=== PATIENT | female | born 1945 | race Caucasian/White ===

== ENCOUNTER 2018-11-24 10:55 | Emergency (ER) | payer MEDICARE ==
--- NOTE | 2018-11-24 12:13 | ER Document Report ---
ED Extremity Problem, Lower - General Chief Complaint: Leg Pain Stated Complaint: LEG SWELLING Time Seen by Provider: 11/24/18 12:02 Primary Care Provider: DION JIMENEZ MD [Primary Care Provider] - Follow up as needed Notes: This is a 73-year-old pleasant female to the emergency department for evaluation of pain and swelling to her right lower extremity. Patient states that the dog hit her. Caused a big hematoma on the right distal tib-fib area. Tender to the touch. May be some swelling in the calf but denies any pain there. Went to the urgent care and they were concerned so sent her here. Jake jim is not on any blood thinners. No prior history of DVT. Was diagnosed with influenza last week still has mild cough. Otherwise, patient is feeling well. Denies any other issues. TRAVEL OUTSIDE OF THE [place] IN LAST 30 DAYS: No - HPI Patient complains to provider of: Pain, Swelling Location: Leg Occurred: Yesterday Where: Home Onset/Duration: Sudden Quality of pain: Achy - Related Data Allergies/Adverse Reactions: acetaminophen [From Vicodin] Allergy (Verified 11/24/18 10:59) hydrocodone [From Vicodin] Allergy (Verified 11/24/18 10:59) Past Medical History - General Information source: Patient - Social History Smoking Status: Never Smoker Frequency of alcohol use: None Drug Abuse: None Lives with: Alone Family History: Reviewed & Not Pertinent Patient has suicidal ideation: No Patient has homicidal ideation: No Renal/ Medical History: Denies: Hx Peritoneal Dialysis Review of Systems - Review of Systems Constitutional: denies: Fever, Malaise, Weakness EENT: denies: Nose congestion, Difficulty swallowing, Throat swelling Cardiovascular: denies: Chest pain, Palpitations, Heart racing Respiratory: Cough. denies: Hurts to breathe, Short of breath, Wheezing Gastrointestinal: denies: Abdominal pain, Diarrhea, Nausea, Vomiting Skin: Other - Does have some bruising noted on the right leg she says.. denies: Change in hair/nails, Dryness, Lesions Hematologic/Lymphatic: denies: Anemia, Blood clots, Easy bleeding, Easy bruising Neurological/Psychological: denies: Confusion, Weakness, Numbness Physical Exam - Vital signs Vitals: Temp Pulse Resp BP Pulse Ox 98.1 F 77 18 152/83 H 99 11/24/18 11:05 11/24/18 11:05 11/24/18 11:05 11/24/18 11:05 11/24/18 11:05 Interpretation: Normal - General General appearance: Appears well, Alert - HEENT Head: Normocephalic, Atraumatic Eyes: Normal Pupils: PERRL - Respiratory Respiratory status: No respiratory distress Chest status: Nontender Breath sounds: Normal Chest palpation: Normal - Cardiovascular Rhythm: Regular Heart sounds: Normal auscultation Murmur: No - Abdominal Inspection: Normal Distension: No distension Bowel sounds: Normal Tenderness: Nontender Organomegaly: No organomegaly - Back Back: Normal, Nontender - Extremities General upper extremity: Normal inspection, Nontender, Normal color, Normal ROM, Normal temperature General lower extremity: Tender, Normal color, Normal ROM, Normal temperature, Normal weight bearing, Other - The left lower extremity is normal. The right lower extremity demonstrates what appears to be either a superficial thrombophlebitis versus a hematoma. It is tender to the touch. There is no major tenderness to palpation of the calf but the right lower extremity is slightly larger than the left lower extremity. Pulses are intact. Dorsalis pedis and posterior tibialis palpable.. No: Fred's sign - Neurological Neuro grossly intact: Yes Cognition: Normal Orientation: AAOx4 [place] Coma Scale Eye Opening: Spontaneous [place] Coma Scale Verbal: Oriented [place] Coma Scale Motor: Obeys Commands [place] Coma Scale Total: 15 Speech: Normal Motor strength normal: LUE, RUE, LLE, RLE Sensory: Normal - Psychological Associated symptoms: Normal affect, Normal mood - Skin Skin Temperature: Warm Skin Moisture: Dry Skin Color: Normal, Other - Small amount of bruising noted on the right anterior distal bray Course - Re-evaluation Re-evalutation: 11/24/18 13:43 X-ray of the tib-fib: Negative for acute fracture: Venous ultrasound: Positive for hematoma but no obvious DVT. At this time I think patient would like he just has a traumatic hematoma. Will give an Atul wrap. Will encourage close outpatient follow-up. Discharge at this time in stable condition. - Vital Signs Vital signs: Temp Pulse Resp BP Pulse Ox 98.1 F 77 18 152/83 H 99 11/24/18 11:05 11/24/18 11:05 11/24/18 11:05 11/24/18 11:05 11/24/18 11:05 Discharge - Discharge Clinical Impression: Hematoma of right lower extremity Qualifiers: Encounter type: initial encounter Qualified Code(s): S80.11XA - Contusion of right lower leg, initial encounter Condition: Good Disposition: HOME, SELF-CARE Instructions: Hematoma ([facility]) Additional Instructions: The ultrasound was negative for blood clot. There is no obvious fracture. In the event that symptoms persist or get worse please get reevaluated by primary care doctor or return for worsening symptoms or concerns. Compression dressing such as an Atul wrap may be beneficial. If it makes it feel better than use it. Referrals: DION JIMENEZ MD [Primary Care Provider] - Follow up as needed
--- NOTE | 2018-11-24 13:56 | RADIOLOGY REPORT (SQ) ---
EXAM DESCRIPTION: TIBIA FIBULA RIGHT COMPLETED DATE/TIME: 11/24/2018 1:06 pm REASON FOR STUDY: fall, swelling COMPARISON: None. NUMBER OF VIEWS: Two views. TECHNIQUE: Two radiographic images acquired of the right tibia and fibula to include the knee and an kle in at least one projection. LIMITATIONS: None. FINDINGS: MINERALIZATION: Normal. BONES: No acute fracture or dislocation. No worrisome bone lesions. SOFT TISSUES: No obvious swelling or foreign body. OTHER: No other significant finding. IMPRESSION: NEGATIVE STUDY OF THE RIGHT TIBIA AND FIBULA. NO RADIOGRAPHIC EVIDENCE OF ACUTE INJURY. TECHNICAL DOCUMENTATION: JOB ID: [id number] [employer]- All Rights Reserved Reading location - IP/workstation name: [email or web address]
[2018-11-24 13:57] VITALS: BP 169/65
--- NOTE | 2018-11-24 14:28 | RADIOLOGY REPORT (SQ) ---
EXAM DESCRIPTION: VENOUS UNILATERAL LOWER COMPLETED DATE/TIME: 11/24/2018 1:47 pm REASON FOR STUDY: RLE SWELLING COMPARISON: None. TECHNIQUE: Dynamic and static edwards scale and color images acquired of the right leg venous system. S elected spectral images acquired with additional compression and augmentation maneuvers. The contrala teral common femoral vein and saphenofemoral junction were also imaged. Images stored on PACS. LIMITATIONS: None. FINDINGS: COMMON FEMORAL: Normal phasicity, compression and augmentation. No visualized echogenic ma terial on edwards scale. No defects on color images. FEMORAL: Normal compression and augmentation. No visualized echogenic material on edwards scale. No defe cts on color images. POPLITEAL: Normal compression, augmentation. No visualized echogenic material on edwards scale. No defec ts on color images. CALF VESSELS: Normal compression, augmentation. No visualized echogenic material on edwards scale. No de fects on color images. GSV and SSV: Normal compression, augmentation. No visualized echogenic material on edwards scale. No def ects on color images. ANY DEEP VENOUS INSUFFICIENCY: Not evaluated. ANY EVIDENCE OF POPLITEAL CYST: No. OTHER: No other significant finding. CONTRALATERAL COMMON FEMORAL VEIN AND SAPHENOFEMORAL JUNCTION: Normal phasicity, compression and augmentation. No visualized echogenic material on edwards scale. No de fects on color images. IMPRESSION: NO EVIDENCE OF DVT OR SVT IN THE RIGHT LEG. TECHNICAL DOCUMENTATION: JOB ID: [id number] [employer]- All Rights Reserved Reading location - IP/workstation name: [email or web address]
== END 2018-11-24 13:58 | disposition home or self-care (01) ==
LOC: ER 10:55
DX: S80.11XA Contusion of right lower leg, initial encounter (principal); W54.1XXA Struck by dog, initial encounter; Y92.009 Unspecified place in unspecified non-institutional (private) residence as the place of occurrence of the external cause; R05 Cough; Z88.6 Allergy status to analgesic agent; Z88.5 Allergy status to narcotic agent
CPT/HCPCS: 93971; 99284

== ENCOUNTER 2019-10-01 19:26 | Emergency (ER) | payer MEDICARE, MEDICAID ==
[2019-10-01] MEDS ORDERED: MORPHINE SULFATE 10 MG/ML INJ IV ONE (22:57)
--- NOTE | 2019-10-01 23:09 | ER Document Report ---
ED Fall - General Chief Complaint: Fall Injury Stated Complaint: FALL/SHOULDER/HIP/ARM/KNEE PAIN Time Seen by Provider: 10/01/19 22:32 Primary Care Provider: DION JIMENEZ MD [Primary Care Provider] - Follow up as needed Notes: 74-year-old female with history of Alzheimer's dementia and frequent falls presents for evaluation after a fall. Patient fell onto her left side and is complaining of left shoulder, left knee and left hip pain. Patient denies hitting her head or LOC. Patient's daughter is primary balloon maker however she has to work and patient is alone most of the day. Patient is supposed to use a walker or cane however refuses to use either. Patient's daughter states she has been working with primary care doctor as far as these increased falls. Patient's daughter is requesting to speak to manager rn case about possible resources to help. TRAVEL OUTSIDE OF THE [place] IN LAST 30 DAYS: No - Related data Allergies/Adverse Reactions: acetaminophen [From Vicodin] Allergy (Verified 11/24/18 10:59) hydrocodone [From Vicodin] Allergy (Verified 11/24/18 10:59) Past Medical History - Social History Smoking Status: Unknown if Ever Smoked Family History: Reviewed & Not Pertinent Patient has suicidal ideation: No Patient has homicidal ideation: No Renal/ Medical History: Denies: Hx Peritoneal Dialysis Past Surgical History: Reports: Hx Mastectomy - 1988 Review of Systems - Review of Systems Notes: Constitutional: Negative for fever. HENT: Negative for sore throat. Eyes: Negative for visual changes. Cardiovascular: Negative for chest pain. Respiratory: Negative for shortness of breath. Gastrointestinal: Negative for abdominal pain, vomiting or diarrhea. Genitourinary: Negative for dysuria. Musculoskeletal: Positive for shoulder, knee, hip pain. Negative for back pain. Skin: Negative for rash. Neurological: Negative for headaches, weakness or numbness. 10 point ROS negative except as marked above and in HPI. Physical Exam - Vital signs Vitals: Temp 97.7 F 10/01/19 19:26 - Notes Notes: GENERAL: Well-appearing, well-nourished and in no acute distress. HEAD: Atraumatic, normocephalic. EYES: Pupils equal round and reactive to light, extraocular movements intact, sclera anicteric, conjunctiva are normal. ENT: TMs normal, nares patent, oropharynx clear without exudates. Moist mucous membranes. NECK: Normal range of motion, supple without lymphadenopathy or JVD. LUNGS: Breath sounds clear to auscultation bilaterally and equal. No wheezes rales or rhonchi. HEART: Regular rate and rhythm without murmurs, rubs or gallops. ABDOMEN: Soft, nontender, normoactive bowel sounds. No guarding, no rebound. No masses appreciated. EXTREMITIES: Normal range of motion, no pitting or edema. No clubbing or cyanosis. Tenderness to the left shoulder, left hip, left knee. Full range of motion. NEUROLOGICAL: Cranial nerves II through XII grossly intact. Normal speech, normal gait. PSYCH: Normal mood, normal affect. SKIN: Warm, Dry, normal turgor, no rashes or lesions noted. Course - Re-evaluation Re-evalutation: 10/01/19 74-year-old female presents with fall and pain to left shoulder, left knee, left hip. Patient's has had frequent falls. Patient's daughter requesting to speak to children's nursery assistant. X-rays of left shoulder, left knee, left hip ordered. 10/02/19 00:43 patient's x-rays are negative for fracture. Discussed this with patient. Patient to be held for social hold until evaluated by children's nursery assistant for possible home health. - Vital Signs Vital signs: Temp Pulse Resp BP Pulse Ox 97.7 F 24 H 149/96 H 95 10/01/19 19:56 10/01/19 23:01 10/01/19 23:00 10/01/19 23:01 Discharge - Discharge Clinical Impression: Left hip pain Fall Qualifiers: Encounter type: initial encounter Qualified Code(s): W19.XXXA - Unspecified fall, initial encounter Left shoulder pain Qualifiers: Chronicity: acute Qualified Code(s): M25.512 - Pain in left shoulder Left knee pain Qualifiers: Chronicity: acute Qualified Code(s): M25.562 - Pain in left knee Condition: Stable Disposition: HOME, SELF-CARE Additional Instructions: Your x-rays did not show any fractures. Please follow-up with your primary care doctor in 3 to 5 days. Return to ER if you start having any worsening symptoms, including chest pain, loss of consciousness, head injury, worsening pain, increased falls, dizziness, shortness of breath, fevers, or any other symptoms that are concerning to you. Referrals: DION JIMENEZ MD [Primary Care Provider] - Follow up in 3-5 days
--- NOTE | 2019-10-01 23:44 | RADIOLOGY REPORT (SQ) ---
EXAM DESCRIPTION: XR SHOULDER 2 OR MORE VIEWS COMPLETED DATE/TME: 10/01/2019 22:57 CLINICAL HISTORY: 74 years, Female, fall, pain COMPARISON: None. NUMBER OF VIEWS: 3 TECHNIQUE: 3 view left shoulder LIMITATIONS: None. FINDINGS: Osteopenia. Negative for acute fracture or dislocation. Mild degenerative changes. IMPRESSION: No acute osseous abnormality copyright 2010 [employer]- All Rights Reserved
--- NOTE | 2019-10-01 23:44 | RADIOLOGY REPORT (SQ) ---
EXAM DESCRIPTION: XR FEMUR 2 VIEWS COMPLETED DATE/TME: 10/01/2019 22:57 CLINICAL HISTORY: 74 years, Female, fall, pain COMPARISON: None. NUMBER OF VIEWS: 4 TECHNIQUE: 4 view left femur LIMITATIONS: None. FINDINGS: Osteopenia. Left knee arthroplasty. Negative for acute fracture or dislocation IMPRESSION: No acute osseous abnormality copyright 2010 [employer]- All Rights Reserved
--- NOTE | 2019-10-01 23:45 | RADIOLOGY REPORT (SQ) ---
CLINICAL HISTORY: fall, pain COMPARISON: None. 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 Total knee arthroplasty was performed. Soft tissues are unremarkable. IMPRESSION: No acute osseous findings.
[2019-10-02 08:55] VITALS: BP 123/79
== END 2019-10-02 09:16 | disposition home or self-care (01) ==
LOC: ER 19:26
DX: M25.512 Pain in left shoulder (principal); M25.552 Pain in left hip; M25.562 Pain in left knee; W19.XXXA Unspecified fall, initial encounter; Z91.81 History of falling; G30.9 Alzheimer's disease, unspecified; F02.80 Dementia in other diseases classified elsewhere, unspecified severity, without behavioral disturbance, psychotic disturbance, mood disturbance, and anxiety; Z88.6 Allergy status to analgesic agent
CPT/HCPCS: 99283; 96374; 73552; 73562; 73030; J2270